=== PATIENT | female | born 1975 | race Two or more races ===

== ENCOUNTER 2023-09-28 22:38 | Emergency (ER) | payer MEDICAID, OTHER ==
[~2023-09-28] VITALS: Ht 162.6 cm; Wt 82.0 kg
[2023-09-29 00:01] LABS: Basophils # (auto) 0 10 ^3/uL (0-0.2); Basophils % (auto) 0.5 % (0.0-2.0); Eosinophils # (auto) 0.1 10 ^3/uL (0-0.8); Eosinophils % (auto) 1.7 % (0.0-7.0); Hematocrit 34.5 % (36.0-46.0); Hemoglobin 11.9 g/dL (12.2-16.2); Lymphocytes # (auto) 1.2 10 ^3/uL (0.4-5.4); Lymphocytes % (auto) 17.8 % (10.0-50.0); Mean Corpuscular Hemoglobin 29.6 pg (28.0-32.0); Mean Corpuscular Hgb Conc. 34.6 g/dL (32.0-36.0); Mean Corpuscular Volume 85.4 fL (80.0-100.0); Monocytes # (auto) 0.3 10 ^3/uL (0-1.3); Monocytes % (auto) 5.2 % (0.0-12.0); Neutrophils # (auto) 4.9 10 ^3/uL (1.6-8.6); Neutrophils % (auto) 74.8 % (37.0-80.0); Red Blood Cells 4.04 10^6/uL (4.0-5.20); Red Cell Distribution Width 13.6 % (11.8-14.3); White Blood Cell 6.6 10^3/uL (4.4-10.8)
[2023-09-29 00:09] LABS: Chloride 100 mmol/L (98-107); Potassium 3.7 mmol/L (3.5-5.1); Sodium 135 mmol/L (136-145)
[2023-09-29 00:10] LABS: Anion Gap 6 (5-15); Calcium 9.1 mg/dL (8.7-10.4); Carbon Dioxide 29 mmol/L (20-30)
[2023-09-29 00:15] LABS: BUN/Creatinine Ratio 14.5 (10.0-20.0); Blood Urea Nitrogen 9 mg/dL (9-23); Glucose 260 mg/dL (74-106)
[2023-09-29] MEDS: MECLIZINE HCL 25 MG TAB PO ONE (00:16)
[2023-09-29] MEDS ORDERED: LACT10SO3 PO (01:29)
[2023-09-29] MEDS ORDERED: DOCU-94 PO (01:29)
[2023-09-29 01:45] VITALS: BP 150/90; PULSE 98; RESP 20; TEMP 98; O2SAT 96
== END 2023-09-29 01:49 | disposition home or self-care (01) ==
LOC: ER 22:38
DX: R53.1 Weakness (principal); K59.00 Constipation, unspecified; R42 Dizziness and giddiness; Z88.6 Allergy status to analgesic agent; Z98.51 Tubal ligation status
CPT/HCPCS: 36415; 70450; 71045; 71250; 74176; 80048; 82962; 83880; 84484; 85025; 99284; J8597

== ENCOUNTER 2024-06-07 21:36 | Emergency (ER) | payer MEDICAID ==
[~2024-06-07] VITALS: Ht 162.6 cm; Wt 80.4 kg
[~2024-06-07 21:36] MED LIST: DOCU-94 PO; LACT10SO3 PO
[2024-06-07 22:23] LABS: Urine Bacteria None Seen /hpf (None Seen)
[2024-06-07 22:38] LABS: Urine Blood Negative /uL (Negative); Urine Clarity Clear (Clear); Urine Color Light-Yellow (Yellow); Urine Protein, UAD Negative (Negative); Urine Specific Gravity 1.034 (1.001-1.035); Urine Squamous Epithelial Cell FEW /hpf (<5); Urine Urobilinogen Normal (Negative); Urine WBC 1 /HPF (0-5)
[2024-06-08] MEDS ORDERED: IBUP-1456 PO (02:46)
--- NOTE | 2024-06-08 02:47 | ED.PDOC ---
General HPI Comments 48-YEAR-OLD FEMALE PRESENTS TO ER WITH URINARY COMPLAINT X2 MONTHS. PATIENT REPORTS THAT SHE HAS BEEN EXPERIENCING BURNING WITH URINATION AND INCREASE IN URINATION X TWO MONTHS. REPORTS THAT SHE RECENTLY FINISHED NITROFURANTOIN FOR A UTI ONE WEEK AGO BUT IS STILL EXPERIENCING BURNING WITH URINATION AND INCREASE IN URINATION PROMPTING HER TO COME TO ER FOR FURTHER EVALUATION. SHE REPORTS 4/10 BURNING PAIN WITH URINATION, DENYING ANY OTHER CURRENT PAIN. PATIENT PRESENTS TO ER AMBULATORY ON ARRIVAL, WITH STEADY GAIT, IN NO DISTRESS. DENIES FEVER, BODY ACHES, CHILLS, NAUSEA/VOMITING, HEADACHE, ABDOMINAL/PELVIC PAIN, BACK/FLANK PAIN, VAGINAL DISCHARGE, EXPOSURE TO STD, SKIN CHANGES, FURTHER CHANGES IN URINATION OR ANY FURTHER SYMPTOMS/COMPLAINTS Chief Complaint: Urinary Time Seen by MD: 22:07 Primary Care Provider: BC Choudhary notes: Nurses Notes, Medications, Allergies Allergies: Coded Allergies: Naproxen (Verified Allergy, 07/05/12) Uncoded Allergies: PENICILLIN (Allergy, 07/05/12) Home Meds Active Scripts Ibuprofen (Ibuprofen) 800 Mg Tab, 1 TAB PO TID PRN, #30 TAB 0 Refills Prov:BRENDA ALFARO 06/08/24 Lactulose (Lactulose) 10 Gm/15 Ml Annie, 10 GM PO BIDPRN PRN, #150 ML Prov:WILFREDO GUZMAN PAC 09/29/23 Docusate Sodium (Colace) 100 Mg Cap, 1 CAP PO BID, #30 CAP Prov:WILFREDO GUZMAN PAC 09/29/23 Information Source: Patient Mode of Arrival: Ambulatory Past Medical History PAST MEDICAL HISTORY: DM, HTN Surgical History: Appendectomy, , Tubal Ligation BELL PERSON History: No Pertinent BELL PERSON History Family History Family History: Unknown Social History Smoker: Non-Smoker Alcohol: Rarely Drugs: Denies Drug Use Lives In: Home Constitutional: denies: chills, diaphoresis, fatigue, fever, malaise, sweats, weakness, others EENTM: denies: blurred vision, double vision, ear bleeding, ear discharge, ear drainage, ear pain, ear ringing, eye pain, eye redness, hearing loss, mouth pain, mouth swelling, nasal discharge, nose bleeding, nose congestion, nose p ain, photophobia, tearing, throat pain, throat swelling, voice changes, others Respiratory: denies: cough, hemoptysis, orthopnea, SOB at rest, shortness of breath, SOB with excertion, stridor, wheezing, others Cardiovascular: denies: chest pain, dizzy spells, diaphoresis, Dyspnea on exertion, edema, irregular heart beat, left arm pain, lightheadedness, palpitations, PND, syncope, others Gastrointestinal: denies: abdomen distended, abdominal pain, blood streaked bowels, constipated, diarrhea, dysphagia, difficulty swallowing, hematemesis, melena, nausea, poor appetite, poor fluid intake, rectal bleeding, rectal pain, vomiting, others Genitourinary: reports: others ( STATED IN HPI) Neurological: denies: dizziness, fainting, headache, left sided numbness, left sided weakness, numbness, paresthesia, pre-existing deficit, right sided numbness, right sided weakness, seizure, speech problems, tingling, tremors, weakness, others Musculoskeletal: denies: back pain, gout, joint pain, joint swelling, muscle pain, muscle stiffness, neck pain, others Integumetry: denies: bruises, change in color, change in hair/nails, dryness, laceration, lesions, lumps, rash, wounds, others Allergic/Immunocompromised: denies: Difficulty Healing, Frequent Infections, Hives, Itching, others Hematologic/Lymphatic: denies: anemia, blood clots, easy bleeding, easy bruising, swollen glands, others Endocrine: denies: excessive hunger, excessive sweating, excessive thirst, excessive urination, flushing, intolerance to cold, intolerance to heat, unexplained weight gain, unexplained weight loss, others Psychiatric: denies: anxiety, bipolar disorder, depression, hopeless, panic disorder, schizophrenia, sleepless, suicidal, others Physical Exam General Appearance: No Apparent Distress HEENT: PERRL/EOMI Neck: Full Range of Motion, Non-Tender, Normal Respiratory: Chest Non-Tender, Lungs Clear, No Accessory Muscle Use, No Respiratory Distress, Normal Breath Sounds Cardiovascular: No Murmur, No Gallop, Regular Rate/Rhythm Breast Exam: Deferred Gastrointestinal: Non Tender, No Pulsatile Mass, Soft Genitalia: Deferred Pelvic: Deferred Rectal: Deferred Extremities: Normal capillary refill, Normal range of motion Musculoskeletal : Extremity Location: Back (NO TTP TO BILATERAL FLANKS OR CVA TENDERNESS NOTED BILATERALLY) Neurologic: Alert, lithographic camera operator II-XII nml as Tested, No Motor Deficits, Normal Affect, Normal Mood, No Sensory Deficits Cerebellar Function: Normal Reflexes: Normal Skin: Dry, Normal Color, Warm Peripheral Pulses: 2+ Radial (R), 2+ Radial (L), 2+ Brachial (R), 2+ Brachial (L) Lymphatic: No Adenopathy Was a procedure done? Was a procedure done?: No Sedation Sedation?: No Differential Diagnosis Kidney stone (Female): N/A Urinary Problem (Female): PID, Pyelonephritis, Urinary retention, Urolithiasis, UTI X-Ray, Labs, Meds, VS Vital Signs Date Time Temp Pulse Resp B/P (MAP) Pulse Ox O2 Delivery O2 Flow Rate FiO2 06/07/24 21:55 99.2 98 18 179/102 (127) 96 Lab Test 06/07/24 22:21 Range/Units Urine Color Light-yellow Yellow Urine Clarity Clear Clear Urine pH 7.0 5.0-9.0 Urine Specific [place] 1.034 1.001-1.035 Urine Protein Negative Negative Urine Ketones Trace Negative Urine Blood Negative Negative /uL Urine Nitrite Negative Negative Urine Bilirubin Negative Negative Urine Urobilinogen Normal Negative mg/dL Urine Leukocyte Esterase Negative Negative /uL Urine RBC 3 0 - 4 /hpf Urine Microscopic WBC 1 0-5 /HPF Urine Squamous Epithelial Cells Few <5 /hpf Urine Bacteria None seen None Seen /hpf Urine Glucose 4+ H Normal mg/dL URINALYSIS REVIEWED-URINE LEUKOCYTE ESTERASE TRACE NEGATIVE, URINE BLOOD NEGATIVE, URINE NITRITES NEGATIVE, URINE GLUCOSE 4+, URINE KETONES TRACE ADVISED TO DRINK PLENTY OF FLUIDS ADVISED TO CONTINUE DIABETES MEDICATIONS PRESCRIBED ADVISED TO MONITOR/RECORD BLOOD GLUCOSE LEVELS CLOSELY AT HOME ADVISED TO FOLLOW UP WITH PCP IN 1-2 DAYS PATIENT VERBALIZED UNDERSTANDING AND AGREEABLE WITH CURRENT PLAN OF CARE ADVISED TO RETURN TO ER IMMEDIATELY IF SYMPTOMS WORSEN Time of 1ST Reevaluation: 02:20 Reevaluation 1ST: N/A Patient Education/Counseling: Diagnosis, Treatment, Prognosis, Need For Follow Up Family Education/Counseling: No Family Present Departure 1 Departure Time of Disposition: 02:42 Impression: Primary Impression: Dysuria Additional Impression: Glucosuria Disposition: 01 HOME / SELF CARE / HOMELESS Condition: Stable e-Prescriptions Ibuprofen (Ibuprofen) 800 Mg Tab 1 TAB PO TID PRN, #30 TAB 0 Refills Prov: BRENDA ALFARO 06/08/24 Discharged With: Self Critical Care Note Critical Care Time?: No Stability Stability form required: No Heart Score Heart Score: Heart Score Response (Comments) Value History N/A 0 EKG N/A 0 Age N/A 0 Risk Factors N/A 0 Troponin N/A 0 Total 0 BRENDA ALFARO Jun 08, 2024 02:47
[2024-06-08 03:00] VITALS: BP 138/90; TEMP 98.1
[2024-06-08 03:14] VITALS: PULSE 92; RESP 16; O2SAT 97
== END 2024-06-08 03:16 | disposition home or self-care (01) ==
LOC: ER 21:36
DX: R30.0 Dysuria (principal); R81 Glycosuria; I10 Essential (primary) hypertension; E11.9 Type 2 diabetes mellitus without complications; Z90.49 Acquired absence of other specified parts of digestive tract; Z87.440 Personal history of urinary (tract) infections; Z98.51 Tubal ligation status; Z88.6 Allergy status to analgesic agent; Z88.0 Allergy status to penicillin
CPT/HCPCS: 81001